=== PATIENT | male | born 1960 | race Caucasian/White ===

== ENCOUNTER 2016-11-16 18:21 | Emergency (ER) | payer BC, OTHER ==
[2016-11-16 18:47] VITALS: BP 170/80
[2016-11-16] MEDS ORDERED: Lactated Ringers 1,000 ML IV ONE (19:06)
[2016-11-16] MEDS ORDERED: Sodium Chloride 0.9% 10 ML Syringe FLUSH PRN (19:06)
--- NOTE | 2016-11-16 19:06 | EDM.PDOC ---
ED HPI GENERAL MEDICAL PROBLEM - General Chief Complaint: Lower Extremity Injury/Pain Stated Complaint: HURT KNEE AT WORK Time Seen by Provider: 11/16/16 18:57 Source of Information: Reports: Patient, RN Notes Reviewed History Limitations: Reports: No Limitations - History of Present Illness INITIAL COMMENTS - FREE TEXT/NARRATIVE: 56-year-old gentleman presents to the emergency department today with a red painful right knee he also developed a fever he states he kneeled on a piece of equipment at work a couple of days ago and now his knee has become more tender and the redness is spreading - Related Data Allergies Allergy/AdvReac Type Severity Reaction Status Date / Time codeine Allergy Hives Verified 05/31/15 08:20 Home Meds: Home Meds Multivitamin [Multi-Vitamin Daily] 1 tab PO ASDIRECTED 05/18/14 [History] Past Medical History HEENT History: Reports: Hard of Hearing Other Gastrointestinal History: ruptured diverticAbd girth 41" - Past Surgical History GI Surgical History: Reports: Colonoscopy, Other (See Below) Musculoskeletal Surgical History: Reports: Arthroscopic Knee Social & Family History - Tobacco Use Smoking Status *Q: Current Every Day Smoker Years of Tobacco use: 30 Packs/Tins Daily: 0.5 Used Tobacco, but Quit: No Month Tobacco Last Used: 2011 Second Hand Smoke Exposure: No - Alcohol Use Days Per Week of Alcohol Use: 0 - Recreational Drug Use Recreational Drug Use: No Review of Systems - Review of Systems Review Of Systems: See Below Constitutional: Reports: Fever Respiratory: Reports: No Symptoms Cardiovascular: Reports: No Symptoms GI/Abdominal: Reports: No Symptoms Musculoskeletal: Reports: Joint Pain (Knee pain right) Skin: Reports: Pallor, Rash, Wound, Change in Color Neurological: Reports: No Symptoms ED EXAM, GENERAL - Physical Exam Exam: See Below Free Text/Narrative:: Examination of the right knee edema is appreciated into the knee as well as down the lower extremity into the pedal area pedal pulses 2+ the knee area is warm to touch there is erythema approximately 5 cm above the kneecap and 5 cm below the kneecap encompassing the knee area there is a enlarged edema area inferior to the kneecap there is a small break in the skin appreciated Exam Limited By: No Limitations General Appearance: Alert, WD/WN, No Apparent Distress Respiratory/Chest: No Respiratory Distress, Lungs Clear, Normal Breath Sounds Cardiovascular: Regular Rate, Rhythm, No Murmur Course - Vital Signs Last Recorded V/S: Last Vital Signs Temp 100.8 F H 11/16/16 18:41 Pulse 74 11/16/16 18:41 Resp 14 11/16/16 18:41 BP 170/80 H 11/16/16 18:41 Pulse Ox 98 11/16/16 18:41 - Orders/Labs/Meds Orders: Active Orders 24 hr Category Date Time Status Peripheral IV Care [RC] . DIRECTED Care 11/16/16 19:06 Active Knee 3V Rt [CR] Stat Exams 11/16/16 19:01 Taken CULTURE BLOOD [BC] Urgent Lab 11/16/16 19:10 Received CULTURE BLOOD [BC] Urgent Lab 11/16/16 19:15 Received UA W/MICROSCOPIC [URIN] Stat Lab 11/16/16 19:01 Uncollected Sodium Chloride 0.9% [Saline Flush] Med 11/16/16 19:06 Active 10 ml FLUSH ASDIRECTED PRN Blood Culture x2 Reflex Set [OM.PC] Urgent Oth 11/16/16 19:01 Ordered Peripheral IV Insertion Adult [OM.PC] Urgent Oth 11/16/16 19:06 Ordered Medication Orders Sodium Chloride (Saline Flush) 10 ml FLUSH ASDIRECTED PRN PRN Reason: Keep Vein Open Last Admin: 11/16/16 19:38 Dose: 10 ml Labs: Laboratory Tests 11/16/16 11/16/16 11/16/16 Range/Units 19:10 19:10 19:10 WBC 9.8 (4.5-11.0) K/uL RBC 4.61 (4.30-5.90) M/uL Hgb 14.8 (12.0-15.0) g/dL Hct 41.4 (40.0-54.0) % MCV 90 (80-98) fL MCH 32 H (27-31) pg MCHC 36 (32-36) % Plt Count 300 (150-400) K/uL Neut % (Auto) 68 H (36-66) % Lymph % (Auto) 22 L (24-44) % [place] % (Auto) 9 H (2-6) % Eos % (Auto) 1 L (2-4) % Baso % (Auto) 1 (0-1) % PT 10.5 (9.5-12.0) sec INR 0.98 (0.80-1.20) APTT 26.4 L (27.0-36.0) sec Sodium 142 (140-148) mmol/L Potassium 3.8 (3.6-5.2) mmol/L Chloride 105 (100-108) mmol/L Carbon Dioxide 26 (21-32) mmol/L Anion Gap 11.1 (5.0-14.0) mmol/L BUN 14 (7-18) mg/dL Creatinine 1.2 (0.8-1.3) mg/dL Est Cr Clr Drug Dosing 74.55 mL/min Estimated GFR (MDRD) > 60 (>60) Glucose 88 (74-106) mg/dL Lactic Acid (0.4-2.0) mmol/L Calcium 8.5 (8.5-10.1) mg/dL Total Bilirubin 1.0 (0.2-1.0) mg/dL AST 34 (15-37) U/L ALT 47 (12-78) U/L Alkaline Phosphatase 92 (46-116) U/L C-Reactive Protein 5.22 H (0.0-0.3) mg/dL Total Protein 7.1 (6.4-8.2) g/dL Albumin 3.5 (3.4-5.0) g/dL Globulin 3.6 H (2.3-3.5) g/dL Albumin/Globulin Ratio 1.0 L (1.2-2.2) // Range/Units 19:10 WBC (4.5-11.0) K/uL RBC (4.30-5.90) M/uL Hgb (12.0-15.0) g/dL Hct (40.0-54.0) % MCV (80-98) fL MCH (27-31) pg MCHC (32-36) % Plt Count (150-400) K/uL Neut % (Auto) (36-66) % Lymph % (Auto) (24-44) % [place] % (Auto) (2-6) % Eos % (Auto) (2-4) % Baso % (Auto) (0-1) % PT (9.5-12.0) sec INR (0.80-1.20) APTT (27.0-36.0) sec Sodium (140-148) mmol/L Potassium (3.6-5.2) mmol/L Chloride (100-108) mmol/L Carbon Dioxide (21-32) mmol/L Anion Gap (5.0-14.0) mmol/L BUN (7-18) mg/dL Creatinine (0.8-1.3) mg/dL Est Cr Clr Drug Dosing mL/min Estimated GFR (MDRD) (>60) Glucose (74-106) mg/dL Lactic Acid 1.0 (0.4-2.0) mmol/L Calcium (8.5-10.1) mg/dL Total Bilirubin (0.2-1.0) mg/dL AST (15-37) U/L ALT (12-78) U/L Alkaline Phosphatase (46-116) U/L C-Reactive Protein (0.0-0.3) mg/dL Total Protein (6.4-8.2) g/dL Albumin (3.4-5.0) g/dL Globulin (2.3-3.5) g/dL Albumin/Globulin Ratio (1.2-2.2) Meds: Medications Generic Name Dose Route Start Last Admin Trade Name Freq PRN Reason Stop Dose Admin Sodium Chloride 10 ml 11/16/16 19:06 11/16/16 19:38 Saline Flush FLUSH 10 ml ASDIRECTED PRN Administration Keep Vein Open Discontinued Medications Generic Name Dose Route Start Last Admin Trade Name Freq PRN Reason Stop Dose Admin Lactated Ringer's 1,000 mls @ 999 mls/hr 11/16/16 19:06 11/16/16 19:37 Ringers, Lactated IV 11/16/16 20:06 999 mls/hr BOLUS ONE Administration Cefazolin Sodium/Dextrose 2 gm 50 mls @ 100 mls/hr 11/16/16 20:20 11/16/16 20 :41 / Premix IV 11/16/16 20:49 100 mls/hr ONETIME ONE Administration Departure - Departure Time of Disposition: 21:30 Disposition: Home, Self-Care 01 Condition: good Clinical Impression: Cellulitis of right knee - Discharge Information Forms: ED Department Discharge Additional Instructions: take full course of antibiotics, please follow-up with orthopedics on Friday for reevaluation - My Orders Last 24 Hours: My Active Orders 11/16/16 19:01 Knee 3V Rt [CR] Stat UA W/MICROSCOPIC [URIN] Stat Blood Culture x2 Reflex Set [OM.PC] Urgent 11/16/16 19:06 Peripheral IV Care [RC] . DIRECTED Sodium Chloride 0.9% [Saline Flush] 10 ml FLUSH ASDIRECTED PRN Peripheral IV Insertion Adult [OM.PC] Urgent 11/16/16 19:10 CULTURE BLOOD [BC] Urgent 11/16/16 19:15 CULTURE BLOOD [BC] Urgent - Assessment/Plan Last 24 Hours: My Active Orders 11/16/16 19:01 Knee 3V Rt [CR] Stat UA W/MICROSCOPIC [URIN] Stat Blood Culture x2 Reflex Set [OM.PC] Urgent 11/16/16 19:06 Peripheral IV Care [RC] . DIRECTED Sodium Chloride 0.9% [Saline Flush] 10 ml FLUSH ASDIRECTED PRN Peripheral IV Insertion Adult [OM.PC] Urgent 11/16/16 19:10 CULTURE BLOOD [BC] Urgent 11/16/16 19:15 CULTURE BLOOD [BC] Urgent Plan: Assessment Acuity = acute Site and laterality = cellulitis over the right knee Etiology = probable bacterial cause Manifestations = fever, pain, erythema Location of injury = home Lab values = CBC, CMP unremarkable lactic acid within normal limits CRP elevated at 5.22, x-ray right knee I did review films myself I cannot appreciate any acute process, the official read from radiology is pending. Plan discussed the case with Dr. Ceballos orthopedics recommended antibiotic coverage of Augmentin and Bactrim all up with him in clinic on Friday, he was given 1 dose of Ancef 2 g now Patient was in agreement with the plan all questions were answered, they were instructed to return to the emergency department or call for worsening symptoms. This note was dictated using [employer] voice recognition software please call with any questions.
[2016-11-16] MEDS ORDERED: ceFAZolin 2 GM in Premix Bag 1 BAG IV ONE (20:20)
--- NOTE | 2016-11-18 10:56 | CR ---
Knee 3V Rt INDICATION: pain, red, fever, cellulitis over area FINDINGS: [place]-Schl[place]'s disease. Soft tissue swelling overlying the proximal tibia. Small benig n enchondroma distal femur. Exam otherwise unremarkable.
== END 2016-11-16 21:40 | disposition home or self-care (01) ==
LOC: JP.ED 18:21
DX: L03.115 Cellulitis of right lower limb (principal); F17.210 Nicotine dependence, cigarettes, uncomplicated; Z88.5 Allergy status to narcotic agent; Z98.890 Other specified postprocedural states
CPT/HCPCS: 36415; 73562; 80053; 83605; 85025; 85610; 85730; 86140; 87040; 96361; 96365; 99284; J0690; J7050; J7120

== ENCOUNTER 2020-05-30 06:45 | Day surgery (SDC) | payer BC, OTHER ==
[2020-05-30] MEDS ORDERED: fentaNYL 100 MCG/2 ML SDV ONE (06:55)
[2020-05-30] MEDS ORDERED: Midazolam 1 MG/ML 2 ML SDV ONE (06:55)
[2020-05-30] MEDS ORDERED: Propofol 200 MG/20 ML SDV ONE (06:55)
[2020-05-30] MEDS ORDERED: Dextrose 5%-Lactated Ringers 1,000 ML IV SCH (07:30)
[2020-05-30 09:35] VITALS: BP 140/82; PULSE 53
--- NOTE | 2020-06-04 12:51 | OR ---
DATE OF PROCEDURE: 05/30/2020 SURGEON: River Ceballos MD PREOPERATIVE DIAGNOSIS: History of colon polyps. POSTOPERATIVE DIAGNOSES: 1. History of colon polyps with no recurrent polyps on today's examination. 2. Uncomplicated colonic diverticulosis. OPERATIVE PROCEDURE: Flexible colonoscopy. ANESTHESIA: IV sedation. INDICATIONS FOR PROCEDURE: A 60-year-old male presenting for followup colonoscopy. He has a history of colon polyps in the past. He is also status post a sigmoid resection for perforated diverticulitis with a temporary colostomy, subsequent colostomy takedown. Plan is to proceed with a colonoscopy with biopsies and/or polypectomy as indicated. Potential risks including bleeding and perforation were discussed and the patient wishes to proceed. DETAILS OF PROCEDURE: The patient was taken to the operating room and placed in a left lateral decubitus position. IV sedation was administered after which the initial digital rectal exam was performed that was unremarkable. Colonoscope was then passed into the rectum with retroflexion revealing uncomplicated hemorrhoidal columns. Scope was then passed to the level of the cecum. The prep was quite good, only a small amount of liquid stool was present. The patient had identifiable colorectal anastomosis which was otherwise unremarkable. Above that, the patient did have some remaining diverticulosis which was at this point uncomplicated. Otherwise, there were no areas of colitis and no additional polyps or signs of neoplasia. The scope was then withdrawn and the above findings reconfirmed and the procedure concluded. Recommendation would be to repeat the colonoscopy in 5 years. River Ceballos MD /[id number]
== END 2020-05-30 10:00 | disposition home or self-care (01) ==
LOC: JP.SDS 06:45
PROVIDERS: ATTEND Surgery
DX: Z12.11 Encounter for screening for malignant neoplasm of colon (principal); K57.30 Diverticulosis of large intestine without perforation or abscess without bleeding; Z86.010 Personal history of colon polyps; Z88.5 Allergy status to narcotic agent
CPT/HCPCS: 45378; J2250; J2704; J3010; J7121